=== PATIENT | male | born 1940 | race Caucasian/White ===

== ENCOUNTER 2016-09-14 05:59 | Day surgery (SDC) | payer MEDICARE, OTHER ==
[~2016-09-14 05:59] MED LIST: Dextrose 5%-0.45% NaCl 1,000 ML IV SCH; Sodium Chloride 0.9% 10 ML Syringe FLUSH PRN
[2016-09-14] MEDS ORDERED: Dextrose 5%-0.45% NaCl 1,000 ML IV SCH (06:00)
[2016-09-14] MEDS ORDERED: fentaNYL 100 MCG/2 ML SDV ONE (06:15)
[2016-09-14] MEDS ORDERED: Midazolam 1 MG/ML 2 ML SDV ONE (06:15)
[2016-09-14] MEDS ORDERED: fentaNYL 100 MCG/2 ML SDV IV ONE ×3 (06:58→16:49)
[2016-09-14] MEDS ORDERED: Midazolam 1 MG/ML 2 ML SDV IV ONE ×7 (07:00→16:49)
--- NOTE | 2016-09-14 07:55 | OR ---
DATE: 09/14/2016 PROCEDURES: Total colonoscopy, NBI, and cold snare polypectomy. INSTRUMENT USED: CF-H180 AL Olympus video colonoscope. PREMEDICATIONS: Fentanyl 100 mcg intravenous, Versed 4 mg intravenous. Nasal O2 cannula. The procedure was done under pulse oximetry, BP recording, and clinical research monitor. INDICATION: Screening colonoscopic examination is done for detection of any polypoid lesions and removal, endoscopic hemostasis therapy if needed. DESCRIPTION OF PROCEDURE: Initial rectal exam was unremarkable. Rigid anoscopy was normal. The colonoscope was passed with ease. Numerous wide-mouthed diverticula were noted in the distal left colon along with deformity. The scope was passed with ease up to the ileocecal area, photographs were taken of the normal-appearing cecum, identified by double-bulged ileocecal folds. No bleeding was noted from any of the visualized areas at the commencement of the examination. No stricture. No vascular ectasia. No large isolated ulcerations seen. No evidence of diffuse inflammatory bowel disease in the form of friability, contact bleeding, or ulcerations. In the proximal transverse colon, 3 mm sized benign-appearing polyp was noted, NBI views were obtained, photographs were taken, cold snare polypectomy was done, the tissue was retrieved and sent for histopathology. Probing the proximal sides of folds and flexures, using adequate distention and clearing of the stool material, withdrawal of the scope was made. No bleeding was noted from any of the visualized areas at the completion of examination. IMPRESSION: 1. Diverticulosis. 2. Diminutive colonic polyp. The patient tolerated the procedure well. [facility] /[id number]
[2016-09-14 11:35] VITALS: BP 122/71
== END 2016-09-14 09:20 | disposition home or self-care (01) ==
LOC: DL.ENDO 05:59
PROVIDERS: ATTEND Internal Medicine Gastroenterology
DX: Z12.11 Encounter for screening for malignant neoplasm of colon (principal); K63.5 Polyp of colon; K57.30 Diverticulosis of large intestine without perforation or abscess without bleeding; E66.9 Obesity, unspecified; F41.9 Anxiety disorder, unspecified; K21.9 Gastro-esophageal reflux disease without esophagitis; Z98.890 Other specified postprocedural states; Z79.899 Other long term (current) drug therapy; E78.00 Pure hypercholesterolemia, unspecified
CPT/HCPCS: 45385; 88305; J2250; J3010; J7042

== ENCOUNTER 2017-02-18 18:13 | Emergency (ER) | payer MEDICARE, OTHER ==
[2017-02-18 18:30] VITALS: BP 126/93
[2017-02-18] MEDS ORDERED: Lidocaine 1% 30 ML SDV INJECT ONE (18:44)
[2017-02-18] MEDS ORDERED: Bacitracin Oint 1 GM U/D Packet TOP ONE (18:44)
--- NOTE | 2017-02-18 18:49 | EDM.PDOC ---
ED HPI GENERAL MEDICAL PROBLEM - General Chief Complaint: Laceration Stated Complaint: HAND AND ARM CUT, [id number] Time Seen by Provider: 02/18/17 18:41 Source of Information: Reports: Patient History Limitations: Reports: No Limitations - History of Present Illness INITIAL COMMENTS - FREE TEXT/NARRATIVE: This 76 yo male patient reports to the ED with lacerations to his right hand, right forearm and left hand. The patient reports he was combining when a chain came loose and hit him in the hands. The patient reports no loss of consciousness before, during or after the incident. The patient reports he got stung by a bee in the medial left elbow. Onset: Today Duration: Constant, Getting Worse Location: Reports: Upper Extremity, Left, Upper Extremity, Right Quality: Reports: Ache, Dull Severity: Mild Improves with: Reports: None Worsens with: Reports: None Associated Symptoms: Reports: No Other Symptoms Bilateral Lower Arm Pain Score (Numeric/FACES): 5 - Related Data Allergies Allergy/AdvReac Type Severity Reaction Status Date / Time No Known Allergies Allergy Verified 02/18/17 18:48 Home Meds: Home Meds Omeprazole 20 mg PO DAILY 03/10/15 [History] atorvaSTATin [Lipitor] 10 mg PO DAILY 09/13/16 [History] Past Medical History HEENT History: Reports: Impaired Vision Cardiovascular History: Reports: High Cholesterol Respiratory History: Reports: None Gastrointestinal History: Reports: Diverticulosis, GERD Genitourinary History: Reports: Other (See Below) Other Genitourinary History: HX OF [employer]NAL [employer] History: Reports: None Musculoskeletal History: Reports: Fracture, Osteoarthritis, Other (See Below) Other Musculoskeletal History: ANKLE FRACTURE RIGHT. DEGENERATIVE DISC DISEASE , CERVICAL. ELBOW FRACTURE LEFT Neurological History: Reports: None Psychiatric History: Reports: None, Anxiety Endocrine/Metabolic History: Reports: Obesity/BMI 30+ Hematologic History: Reports: None Immunologic History: Reports: None Oncologic (Cancer) History: Reports: None Dermatologic History: Reports: None - Infectious Disease History Infectious Disease History: Reports: Chicken Pox, Measles, Mumps, Rubella, Shingles - Past Surgical History Head Surgeries/Procedures: Reports: None HEENT Surgical History: Reports: Cataract Surgery, Tonsillectomy Respiratory Surgical History: Reports: None GI Surgical History: Reports: Appendectomy, Cholecystectomy, Colonoscopy, EGD Neurological Surgical History: Reports: None Musculoskeletal Surgical History: Reports: Other (See Below) Oncologic Surgical History: Reports: None Dermatological Surgical History: Reports: None Social & Family History - Family History Cardiac: Reports: [place] Oncologic: - Tobacco Use Smoking Status *Q: Never Smoker Second Hand Smoke Exposure: No - Caffeine Use Caffeine Use: Reports: Coffee, Soda - Recreational Drug Use Recreational Drug Use: No Drug Use in Last 12 Months: No ED ROS GENERAL - Review of Systems Review Of Systems: ROS reveals no pertinent complaints other than HPI. ED EXAM, SKIN/RASH Exam: See Below Exam Limited By: No Limitations General Appearance: Alert, WD/WN, No Apparent Distress, Thin Eye Exam: Bilateral Eye: EOMI, Normal Inspection, PERRL Ears: Normal External Exam, Normal Canal, Hearing Grossly Normal, Normal TMs Nose: Normal Inspection, Normal Mucosa, No Blood Throat/Mouth: Normal Inspection, Normal Lips, Normal Teeth, Normal Gums, Normal Oropharynx, Normal Voice, No Airway Compromise Head: Atraumatic, Normocephalic Neck: Normal Inspection, Supple, Non-Tender, Full Range of Motion Respiratory/Chest: No Respiratory Distress, Lungs Clear, Normal Breath Sounds, No Accessory Muscle Use, Chest Non-Tender Cardiovascular: Normal Peripheral Pulses, Regular Rate, Rhythm, No Edema, No Gallop, No JVD, No Murmur, No Rub GI/Abdominal: Normal Bowel Sounds, Soft, Non-Tender, No Organomegaly, No Distention, No Abnormal Bruit, No Mass (Male) Exam: Deferred Rectal (Males) Exam: Deferred Back Exam: Normal Inspection, Full Range of Motion, NT Extremities: Normal Range of Motion, No Pedal Edema, Normal Capillary Refill Neurological: Alert, Oriented, CN II-XII Intact, Normal Cognition, Normal Gait, Normal Reflexes, No Motor/Sensory Deficits Psychiatric: Normal Affect, Normal Mood Skin: Warm, Normal Color, No Rash Location, Skin: Upper Extremity, Right (forearm laceration, 2 lacerations at the base of the right thumb), Upper Extremity, Left (left hand laceration ( lateral 4th PIP)) Characteristics: Fine Lymphatic: No Adenopathy ED SKIN PROCEDURES - Laceration/Wound Repair Right Proximal Finger Lac/Wound length In cm: 0.5 Appearance: Subcutaneous Distal NVT: Neuro & Vascular Intact Anesthetic Type: Local Local Anesthesia - Lidocaine (Xylocaine): 1% Plain Local Anesthetic Volume: 2cc Skin Prep: Chlorhexidine (Hibiciens) Exploration/Debridement/Repair: Wound Explored, In a Bloodless Field, No Foreign Material Found Closed with: Sutures Suture Size: 4-0 # of Sutures: 2 Suture Type: Prolene, Interrupted, Simple Drain Placement: No Sterile Dressing Applied: Nurse Tetanus Status Addressed: Yes Complications: No Right Lateral Hand Lac/Wound length In cm: 1.5 Appearance: Subcutaneous Distal NVT: Neuro & Vascular Intact Anesthetic Type: Local Local Anesthesia - Lidocaine (Xylocaine): 1% Plain Local Anesthetic Volume: 3cc Skin Prep: Chlorhexidine (Hibiciens) Exploration/Debridement/Repair: Wound Explored, In a Bloodless Field, No Foreign Material Found Closed with: Sutures Suture Size: 4-0 # of Sutures: 8 Suture Type: Prolene, Interrupted, Simple Drain Placement: No Sterile Dressing Applied: Nurse Tetanus Status Addressed: Yes Complications: No Right Medial Hand Lac/Wound length In cm: 0.5 Appearance: Subcutaneous Distal NVT: Neuro & Vascular Intact Anesthetic Type: Local Local Anesthesia - Lidocaine (Xylocaine): 1% Plain Local Anesthetic Volume: 2cc Skin Prep: Chlorhexidine (Hibiciens) Exploration/Debridement/Repair: Wound Explored, In a Bloodless Field, No Foreign Material Found Closed with: Sutures Suture Size: 4-0 # of Sutures: 2 Suture Type: Prolene, Interrupted, Simple Drain Placement: No Sterile Dressing Applied: Nurse Tetanus Status Addressed: Yes Complications: No Course - Vital Signs Last Recorded V/S: Last Vital Signs Temp 36.6 C 02/18/17 18:29 Pulse 94 02/18/17 18:29 Resp 16 02/18/17 18:29 BP 126/93 H 02/18/17 18:29 Pulse Ox 94 L 02/18/17 18:29 - Orders/Labs/Meds Meds: Medications Discontinued Medications Generic Name Dose Route Start Last Admin Trade Name Freq PRN Reason Stop Dose Admin Bacitracin 1 dose 02/18/17 18:44 02/18/17 18:48 Bacitracin Oint 1 Gm TOP 02/18/17 18:45 1 dose ONETIME ONE Administration Lidocaine HCl 30 ml 02/18/17 18:44 02/18/17 18:48 Xylocaine-Mpf 1% INJECT 02/18/17 18:45 30 ml ONETIME ONE Administration Departure - Departure Time of Disposition: 19:27 Disposition: Home, Self-Care 01 Condition: Fair Clinical Impression: Laceration of right hand Qualifiers: Encounter type: initial encounter Foreign body presence: without foreign body Qualified Code(s): S61.411A - Laceration without foreign body of right hand, initial encounter - Discharge Information Instructions: Laceration Care, Adult, [id number] Forms: ED Department Discharge Care Plan Goals: The patient was advised of the examination results during the visit. The skin margins were well approximated during the visit. The remainder of the wounds were cleaned and dressed. The patient should keep the area clean and dry over the next 24 hours. The patient should have the sutures removed in 10-14 days. The patient was given a Tetanus injection and an oral dose of Keflex while in the ED. The patient was discharged with a script for Keflex (500 mg) #30 to take 1 by mouth 3 times per day for 10 days. If the patient has any additional symptoms or concerns, the patient should follow-up with his primary care facility or return to the emergency department.
[2017-02-18] MEDS ORDERED: Diphtheria,Pertussis(Acell),Tetanus Vaccine 0.5 ML SDV IM ONE (19:24)
[2017-02-18] MEDS ORDERED: Cephalexin 500 MG Cap PO ONE (19:30)
== END 2017-02-18 20:06 | disposition home or self-care (01) ==
LOC: DL.ED 18:13
DX: S61.411A Laceration without foreign body of right hand, initial encounter (principal); S51.811A Laceration without foreign body of right forearm, initial encounter; S61.412A Laceration without foreign body of left hand, initial encounter; S61.215A Laceration without foreign body of left ring finger without damage to nail, initial encounter; Z23 Encounter for immunization; E78.00 Pure hypercholesterolemia, unspecified; K21.9 Gastro-esophageal reflux disease without esophagitis; M19.90 Unspecified osteoarthritis, unspecified site; E66.9 Obesity, unspecified; Z98.49 Cataract extraction status, unspecified eye; Z98.890 Other specified postprocedural states; Z90.49 Acquired absence of other specified parts of digestive tract; Z79.899 Other long term (current) drug therapy; Z68.26 Body mass index [BMI] 26.0-26.9, adult; W22.8XXA Striking against or struck by other objects, initial encounter
CPT/HCPCS: 12001; 90471; 90715; 99282; A9270

== ENCOUNTER 2017-02-20 18:31 | Emergency (ER) | payer MEDICARE, OTHER ==
[2017-02-20] MEDS ORDERED: Lidocaine 1% 50 MG/5 ML Syringe IVPUSH ONE (20:30)
[2017-02-20] MEDS ORDERED: Lidocaine 1% 30 ML SDV INJECT ONE (20:37)
[2017-02-20] MEDS ORDERED: Acetaminophen/oxyCODONE 325-5 MG Tab ONE (22:49)
[2017-02-20] MEDS ORDERED: Acetaminophen/oxyCODONE 325-5 MG Tab PO ONE (22:49)
--- NOTE | 2017-02-20 22:51 | EDM.PDOC ---
ED HPI GENERAL MEDICAL PROBLEM - General Chief Complaint: Upper Extremity Injury/Pain Stated Complaint: PINKY FINGER TIP CUT, [id number] Time Seen by Provider: 02/20/17 19:50 Source of Information: Reports: Patient History Limitations: Reports: No Limitations - History of Present Illness INITIAL COMMENTS - FREE TEXT/NARRATIVE: ED presents with c/o laceration to "pinkie" finger. 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 In ED recently for laceration repair to right arm and hand from farm injury. Currently on Keflex. Right 5-Little finger Pain Score (Numeric/FACES): 5 - Related Data Allergies Allergy/AdvReac Type Severity Reaction Status Date / Time No Known Allergies Allergy Verified 02/20/17 19:39 Home Meds: Home Meds Omeprazole 20 mg PO DAILY 03/10/15 [History] atorvaSTATin [Lipitor] 10 mg PO DAILY 09/13/16 [History] Cephalexin [Cephalexin] 1 cap PO Q8H 02/20/17 [History] Past Medical History HEENT History: Reports: Impaired Vision Cardiovascular History: Reports: High Cholesterol Respiratory History: Reports: None Gastrointestinal History: Reports: Diverticulosis, GERD Genitourinary History: Reports: Other (See Below) Other Genitourinary History: HX OF RENAL [employer] History: Reports: None Musculoskeletal History: Reports: Fracture, Osteoarthritis, Other (See Below) Other Musculoskeletal History: ANKLE FRACTURE RIGHT. DEGENERATIVE DISC DISEASE , CERVICAL. ELBOW FRACTURE LEFT Neurological History: Reports: None Psychiatric History: Reports: None, Anxiety Endocrine/Metabolic History: Reports: Obesity/BMI 30+ Hematologic History: Reports: None Immunologic History: Reports: None Oncologic (Cancer) History: Reports: None Dermatologic History: Reports: Other (See Below) Other Dermatologic History: laceration with stitches to right hand - Infectious Disease History Infectious Disease History: Reports: Chicken Pox, Measles, Mumps, Rubella, Shingles - Past Surgical History Head Surgeries/Procedures: Reports: None HEENT Surgical History: Reports: Cataract Surgery, Tonsillectomy Respiratory Surgical History: Reports: None GI Surgical History: Reports: Appendectomy, Cholecystectomy, Colonoscopy, EGD Neurological Surgical History: Reports: None Musculoskeletal Surgical History: Reports: Other (See Below) Oncologic Surgical History: Reports: None Dermatological Surgical History: Reports: None Social & Family History - Family History Family Medical History: Noncontributory Cardiac: Reports: MD Oncologic: - Tobacco Use Smoking Status *Q: Never Smoker Second Hand Smoke Exposure: No - Caffeine Use Caffeine Use: Reports: Coffee - Recreational Drug Use Recreational Drug Use: No Drug Use in Last 12 Months: No Review of Systems - Review of Systems Review Of Systems: ROS reveals no pertinent complaints other than HPI. ED EXAM, GENERAL - Physical Exam Exam: See Below Exam Limited By: No Limitations General Appearance: Alert, Mild Distress Eye Exam: Bilateral Eye: EOMI Ears: Normal External Exam Ear Exam: Bilateral Ear: TM normal Nose: Normal Inspection Throat/Mouth: Normal Inspection Respiratory/Chest: No Respiratory Distress, Lungs Clear Cardiovascular: Normal Peripheral Pulses, Regular Rate, Rhythm Extremities: Limited Range of Motion Neurological: Alert, Oriented Psychiatric: Normal Affect, Normal Mood Skin Exam: Wound/Incision (2cm deep laceration to distal right 5 finger, palmar partial loosening of distal nail. ) ED TRAUMA EXTREMITY PROCEDURES - Laceration/Wound Repair Right Distal Finger Lac/Wound Length In cm: 2 Appearance: Subcutaneous Distal NVT: Neuro & Vascular Intact Anesthetic Type: Local Local Anesthesia - Lidocaine (Xylocaine): 1% Plain Local Anesthetic Volume: 3cc Skin Prep: Chlorhexidine (Hibiciens), Saline Saline Irrigation (cc's): 200 Exploration/Debridement/Repair: Wound Explored, Multiple Flaps Aligned Closed With: Sutures Suture Size: 4-0 # of Sutures: 9 Suture Type: Nylon, Interrupted Suture Size: 4-0 # of Sutures: 4 Repaired With: Vicryl Sterile Dressing Applied: Nurse Tetanus Status Addressed: Yes Complications: No Course - Vital Signs Last Recorded V/S: Last Vital Signs Temp 98.8 F 02/20/17 19:42 Pulse 111 H 02/20/17 22:57 Resp 18 02/20/17 22:57 BP 128/83 02/20/17 22:57 Pulse Ox 96 02/20/17 22:57 - Orders/Labs/Meds Meds: Medications Discontinued Medications Generic Name Dose Route Start Last Admin Trade Name Bimal PRN Reason Stop Dose Admin Lidocaine HCl 50 mg 02/20/17 20:30 Xylocaine 1% IVPUSH 02/20/17 20:31 ONETIME ONE Lidocaine HCl 30 ml 02/20/17 20:37 02/20/17 21:52 Xylocaine-Mpf 1% INJECT 02/20/17 20:38 5 ml ONETIME ONE Administration Oxycodone/Acetaminophen Confirm 02/20/17 22:49 02/20/17 22:56 Percocet 325-5 Mg Administered 02/20/17 22:50 Not Given Dose 2 tab .ROUTE .STK-MED ONE - Radiology Interpretation Free Text/Narrative:: xray right 5 th finger with distal tuft fx Departure - Departure Time of Disposition: 22:47 Disposition: Home, Self-Care 01 Condition: Good Clinical Impression: Fracture, finger, open Qualifiers: Encounter type: initial encounter Finger: little finger Phalanx: distal Fracture alignment: displaced Laterality: right Qualified Code(s): S62.636B - Displaced fracture of distal phalanx of right little finger, initial encounter for open fracture - Discharge Information Instructions: Laceration Care, Adult, Crush Injury, Fingers or Toes, Easy-to- Read Referrals: David Mehta MD [Primary Care Provider] - Forms: ED Department Discharge Additional Instructions: oxycodone 5/325 one every 6 hours as needed for severe pain #12 tylenol 650mg or ibuprofen 600mg, alternating every 4 hours as needed for moderate pain follow up with [facility] care for wound check on Continue antibiotic as ordered monitor for any signs of infection, increased pain, swelling drainage, if noted - urgent follow up sutures out 10- 14 days keep dressing in place for 24 hours then may change
[2017-02-20 23:08] VITALS: BP 128/83
== END 2017-02-20 23:00 | disposition home or self-care (01) ==
LOC: DL.ED 18:31
DX: S62.636B Displaced fracture of distal phalanx of right little finger, initial encounter for open fracture (principal); S61.216A Laceration without foreign body of right little finger without damage to nail, initial encounter; K21.9 Gastro-esophageal reflux disease without esophagitis; M19.90 Unspecified osteoarthritis, unspecified site; E78.00 Pure hypercholesterolemia, unspecified; F41.9 Anxiety disorder, unspecified; Z98.49 Cataract extraction status, unspecified eye; Z98.890 Other specified postprocedural states; Z90.49 Acquired absence of other specified parts of digestive tract; Z79.899 Other long term (current) drug therapy; W23.0XXA Caught, crushed, jammed, or pinched between moving objects, initial encounter
CPT/HCPCS: 12001; 73140; 99283; A9270

== ENCOUNTER 2019-08-06 08:51 | Day surgery (SDC) | payer MEDICARE, OTHER ==
[~2019-08-06 08:51] MED LIST changes: +Acetaminophen 325 MG Tab PO PRN; +Acetaminophen/Codeine 300-30 MG Tab PO PRN; +Cataract Ophth Solution EYERT ONE; -Dextrose 5%-0.45% NaCl 1,000 ML IV SCH; +Moxifloxacin 0.5% Ophth Soln 3 ML Bottle EYERT ONE; +Ondansetron 4 MG/2 ML SDV IVPUSH PRN; +Phenylephrine 10% Ophth Soln 5 ML Bot EYERT ONE; +Povidone-Iodine 5% Sterile Ophth Soln 30 ML Bottle EYERT ONE; +Proparacaine 0.5% Ophth Soln 15 ML Bottle EYERT ONE; +Timolol Maleate 0.5% Ophth Soln 5 ML Bottle EYERT ONE; +Tropicamide 1% Ophth Soln 15 ML Bottle EYERT ONE
[2019-08-06] MEDS ORDERED: Dexamethasone 4 MG/ML SDV IV ONE (08:52)
[2019-08-06] MEDS ORDERED: Sodium Chloride 0.9% 10 ML Syringe IV ONE (08:52)
[2019-08-06] MEDS ORDERED: Midazolam 1 MG/ML 2 ML SDV IV ONE (08:52)
[2019-08-06] MEDS ORDERED: Tetracaine HCl/PF 0.5% 4 ML Bottle EYERT ONE (09:49)
[2019-08-06] MEDS ORDERED: Dexamethasone/Neomycin/Polymyxin B Ophth Oint 3.5 GM Tube EYERT ONE (09:50)
[2019-08-06] MEDS ORDERED: Apraclonidine 0.5% Ophth Soln 5 ML Bot EYERT ONE (09:50)
[2019-08-06] MEDS ORDERED: Lidocaine 1% 30 ML SDV ONE (09:50)
[2019-08-06] MEDS ORDERED: Diclofenac Sodium 0.1% Ophth Soln 5 ML Bottle EYERT ONE (09:50)
[2019-08-06] MEDS ORDERED: Povidone-Iodine 5% Sterile Ophth Soln 30 ML Bottle EYERT ONE (09:50)
[2019-08-06] MEDS ORDERED: Chondroitin Sulfate/Hyaluronate Sodium Ophth Inj 0.75 ML Syringe EYERT ONE (09:51)
[2019-08-06] MEDS ORDERED: Vancomycin 500 MG SDV EYERT ONE (09:51)
[2019-08-06] MEDS ORDERED: Balanced Salt Solution Ophth Irrig 500 ML Bottle IOCULAR ONE (09:51)
--- NOTE | 2019-08-07 08:38 | OR ---
DATE: 08/06/2019 PREOPERATIVE DIAGNOSIS: Visually significant mixed cataract, right eye. POSTOPERATIVE DIAGNOSIS: Visually significant mixed cataract, right eye. PROCEDURE: Extracapsular cataract extraction with intraocular lens implant, right eye. ANESTHESIA: Topical/local MAC. COMPLICATIONS: None. INDICATION: This gentleman was seen in the clinic with complaints of blurred vision. His examination revealed visually significant mixed cataract. I explained options. I offered cataract surgery and I explained risks, including, but not limited to, infection, retinal detachment, loss of vision, need for additional surgery, amongst others. We discussed implant options. He has requested surgery with a monofocal implant. He is comfortable wearing spectacle correction following surgery if necessary. OPERATIVE DESCRIPTION: After informed consent was obtained and the risks, benefits, and alternatives were explained, the patient was brought to the operative suite and topical anesthesia was administered. The patient was then prepped and draped in the sterile fashion and attention was placed on the right eye. A sterile lid speculum was placed into the right eye to allow operative exposure. A full-thickness paracentesis was made in the temporal portion of the operative eye. Preservative-free lidocaine 0.1 mL was injected into the anterior chamber followed by viscoelastic. A full-thickness corneal incision was then made into the anterior chamber. A bent needle cystotome was used to create a small jaylene in the anterior capsule. The capsulorrhexis forceps was then used to create a 360-degree curvilinear capsulorrhexis. The nucleus was then removed using a phacoemulsification handpiece and the remaining cortical material was then removed with irrigation and aspiration handpiece. Following removal of the cortical material, the capsular bag was then inspected and noted to be free of any holes or tears. Viscoelastic was then injected into the capsular bag and the intraocular lens was inserted into the capsular bag. The viscoelastic material was then removed from both the anterior and posterior chambers and from behind the IOL. The lens and capsular bag were then reinspected. The IOL was well centered and the capsular bag intact. The wound and paracentesis sites were inspected and hydrated with balanced saline solution. Both were found to be self- sealing. The intraocular pressure was assessed digitally and found to be within normal range. A good red reflex was noted at the completion of the procedure. No complications occurred during the operation. At the completion of the procedure, Maxitrol, Voltaren, and Iopidine drops were placed into the operative eye. A sterile eye shield was placed over the operative eye and the patient was transported to the postoperative recovery area having tolerated the procedure well. Postoperative instructions were given along with a postoperative appointment. The patient was advised to call with any questions or concerns. [facility] /[id number]
== END 2019-08-06 10:59 | disposition home or self-care (01) ==
LOC: DL.SDS 08:51
PROVIDERS: ATTEND Ophthalmology
DX: H25.811 Combined forms of age-related cataract, right eye (principal); E66.09 Other obesity due to excess calories; E78.00 Pure hypercholesterolemia, unspecified; F41.1 Generalized anxiety disorder; M19.90 Unspecified osteoarthritis, unspecified site; K57.30 Diverticulosis of large intestine without perforation or abscess without bleeding; K21.9 Gastro-esophageal reflux disease without esophagitis; Z98.890 Other specified postprocedural states; Z98.42 Cataract extraction status, left eye; Z68.29 Body mass index [BMI] 29.0-29.9, adult
CPT/HCPCS: 66984; A9270; J1100; J2001; J2250; J3370; 00142; V2632